=== PATIENT | male | born 1975 | race Caucasian/White ===

== ENCOUNTER → 2019-10-20 15:15 | Outpatient (BNVA) | payer OTHER, SELFPAY | PROVIDERS: Family Provider Family Medicine; Visit Provider Nurse Practitioner Family | DX: R05 Cough (principal); R09.81 Nasal congestion; R50.9 Fever, unspecified | CPT/HCPCS: 87635 ==

== ENCOUNTER 2021-04-26 11:55 | Outpatient (CLI) | payer OTHER, SELFPAY ==
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
--- NOTE | 2021-04-26 12:08 | XR_ITS ---
WS: [id number] XR knee LT 3V* [id number] REASON FOR EXAM: PAIN IN LEFT KNEE FINDINGS: No fracture or focal bone lesion. The joint spaces of the left knee are relatively well-preserved. No significant subchondral bony abnormality. No osteophyte formation. No soft tissue abnormality. XR/XR knee LT 3V* [id number] IMPRESSION: No significant abnormality.
== END 2021-04-26 11:56 | disposition home or self-care (01) ==
PROVIDERS: PCP Nurse Practitioner Family; Visit Provider Nurse Practitioner Family
DX: M25.561 Pain in right knee (principal)
CPT/HCPCS: 73562

== ENCOUNTER 2021-08-04 15:34 | Emergency (ER) | payer OTHER, SELFPAY ==
[2021-08-04 16:59] VITALS: BP 142/81; PULSE 74; RESP 16; TEMP 37.1; O2SAT 98; BMI 19.2
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
[2021-08-04] MEDS: cefTRIAXone 1,000 MG in lidocaine 1% 2.1 ML 1 MG IM (18:26)
[2021-08-04] MEDS: tetanus-dipt-pertussis 0.5 mL SDV IM (18:28)
== END 2021-08-04 18:51 | disposition home or self-care (01) ==
PROVIDERS: Emergency Provider Nurse Practitioner Family; PCP Nurse Practitioner Family
DX: T22.232A Burn of second degree of left upper arm, initial encounter (principal); X19.XXXA Contact with other heat and hot substances, initial encounter; Y93.89 Activity, other specified; M79.89 Other specified soft tissue disorders; Z23 Encounter for immunization
CPT/HCPCS: 90471; 90715; 96372; 99283; J0696